=== PATIENT | male | born 1965 | race Native Hawaiian/Other Pacific Islander ===

== ENCOUNTER → 2019-05-19 07:03 | Outpatient (CLI) | payer OTHER, SELFPAY ==
--- NOTE | 2019-05-19 | DI.US.S_ITS ---
PROCEDURE: US SCROTUM INDICATIONS: SCROTAL MASS TECHNIQUE: Real-time scanning was performed of the scrotum and testicles, with image documentation. Color and pulse Doppler interrogation was performed of both testicles. COMPARISON: Outside Film, US, US TESTICULAR SCROTUM + DOPPLER, 04/15/2017, 15:08. FINDINGS: Right: Testicle is normal in size at 4.2 x 2.0 x 2.8 cm, and homogenous in echotexture. Epididymis is normal in overall size and morphology. Simple epididymal cyst measuring 3 mm. No hydrocele or varicoceles. Overlying scrotal skin is normal in thickness. Left: Testicle is normal in size at 3.8 x 1.9 x 3.1 cm, and homogeneous in echotexture. Epididymis is normal in overall size and morphology. Simple epididymal cyst measuring 4 mm. No hydrocele or varicoceles. Overlying scrotal skin is normal in thickness. Complex, rounded avascular left scrotal wall mass appear increased in size compared to prior outside study measuring 4.1 x 2.0 x 2.9 cm compared to 3.0 x 2.5 x 1.9 cm. Doppler: Color and pulse Doppler demonstrate normal and symmetric arterial flow in both testicles. IMPRESSION: 1. Normal testicles bilaterally. 2. Bilateral epididymal cysts. 3. Slight increase in size of complex left scrotal wall mass. Findings are nonspecific and differential would include both benign and malignant etiology. Consider dermatology consultation. Dictated by: Johnathan LACEY Interpreted: Nitish Thompson MD on 05/19/2019 at 10:05 Approved by: Niitsh Thompson M.D. on 05/19/2019 at 16:01
== END ==
PROVIDERS: PCP Family Medicine; Visit Provider Urology
DX: N50.89 Other specified disorders of the male genital organs (principal); N50.3 Cyst of epididymis
CPT/HCPCS: 76870